=== PATIENT | female | born 1975 | race Caucasian/White ===

== ENCOUNTER 2022-12-31 11:25 | Observation (INO) ==
[2022-12-31 13:30] LABS: Basophils # (auto) 0.04 K/uL (0-0.2); Basophils % (auto) 1.2 %; Eosinophils # (auto) 0.02 K/uL (0-0.50); Eosinophils % (auto) 0.6 %; Hematocrit (blood only) 40.1 % (37.0-47.0); Hemoglobin 13.5 g/dl (12.0-16.0); Immature Granulocytes # (auto) 0.01 K/uL (0.01-0.20); Immature Granulocytes % (auto) 0.3 %; Lymphocytes # (auto) 0.72 K/uL (1.2-3.4); Lymphocytes % (auto) 22.4 %; Mean Corpuscular Hemoglobin 29.8 pg (25.0-34.0); Mean Corpuscular Hgb Conc 33.7 g/dL (32.0-36.0); Mean Corpuscular Volume 88.5 fL (80.0-100.0); Mean Platelet Volume 11.3 fL (9.4-12.4); Monocytes # (auto) 0.51 K/uL (0.11-0.59); Monocytes % (auto) 15.8 %; Neutrophils # (auto) 1.92 K/uL (1.40-6.50); Neutrophils % (auto) 59.7 %; Platelet Count 195 K/uL (130-400); RDW Coefficient of Variation 12.9 % (11.5-14.5); RDW Standard Deviation 42.1 fL (36.4-46.3); Red Blood Count 4.53 M/uL (4.20-5.40); White Blood Count 3.22 K/ul (4.8-10.8)
[2022-12-31 13:33] LABS: Albumin Globulin Ratio 1.1 (0.9-2); BUN Creatinine Ratio 26.2 (10-20); Bilirubin,Total 0.3 mg/dl (0.2-1.0); Calcium 9.3 mg/dl (8.6-10.3); Creatinine Clr Calc Pharmacy 132.9 ml/min; Est GFR (African American) 121.7 ml/min; Globulin 3.5 gm/dl (2.5-4.0); Total Protein 7.5 gm/dl (6.0-8.3)
[2022-12-31 13:39] LABS: Troponin I High Sensitivity 3.1 pg/ml (0-14)
--- NOTE | 2022-12-31 13:42 | XRay Report ---
XR chest 1V not portable CLINICAL HISTORY: Chest pain, nonspecific COMPARISON STUDY: No previous studies for comparison. FINDINGS: Lung volumes are normal. Lungs are clear. There is no pneumothorax or pleural effusion. Car diac size is normal. Mediastinal contours are normal. There is no evidence for pulmonary edema. IMPRESSION: No acute cardiopulmonary findings. ACT 112: Negative or not required by law. Electronically signed by: Leighton Lancaster M.D. 12/31/2022 1:41 PM
[2022-12-31 13:45] LABS: INR 1.1 (0.9-1.1); Partial Thromboplastin Ratio 0.9; Partial Thromboplastin Time 25.2 Seconds (21.0-31.0); Prothrombin Time 11.5 Seconds (9.0-12.0)
--- NOTE | 2022-12-31 14:22 | Electrocardiogram Report ---
Test Reason : Blood Pressure : / mmHG Vent. Rate : 075 BPM Atrial Rate : 075 BPM P-R Int : 180 ms QRS Dur : 124 ms QT Int : 394 ms P-R-T Axes : 052 -16 099 degrees QTc Int : 439 ms Sinus rhythm with occasional Premature ventricular complexes Possible Left atrial enlargement Left bundle branch block (rate related) Abnormal ECG No previous ECGs available Confirmed by Balaji Goodson ([id number]) on 12/31/2022 2:21:36 PM Referred By: Confirmed By:Valentino Goodson
--- NOTE | 2022-12-31 14:29 | Emergency Department Note ---
History of Present Illness General Chief complaint: Chest Pain Stated complaint: CHEST PAINS,IRREGULAR EKG Time Seen by Provider: 12/31/22 13:57 History of Present Illness Maximum Pain Intensity: 1 This is a 47-year-old female that presents to the emergency department via private vehicle with complaints of "chest pain, irregular EKG". The patient notes that she had an episode of chest pain this Thursday morning. She notes that it occurred around 3 AM and describes it as a chest tightness/pressure. She notes that she felt it in her back as well. It lasted about 3.5 hours. She notes it was quite uncomfortable. She then notes that a similar episode happened the last week in October. That was of 2 hours in duration. Patient denies any issues since that time. The patient notes that today she followed up with PCP and had an abnormal EKG. No shortness of breath. No fevers or chills. Patient denies any history of ID or PE. She does note an allergy to IV contrast dye and penicillin. Home Medications Medication Instructions Recorded Confirmed Type loratadine 10 mg tablet 10 mg PO DAILY 12/31/22 12/31/22 History Allergies Allergy/AdvReac Type Severity Reaction Status Date / Time Penicillins Allergy Hives Unverified 12/31/22 14:56 IV IODINE Allergy Unknown Uncoded 12/31/22 16:13 Past Med/Surg History Medical History HLD (hyperlipidemia) Obesity Surgical History H/O wisdom tooth extraction Family History (Updated 12/31/22 @ 15:24 by Raquel Upton PA-C) Mother Coronary heart disease Depression Father Lung disease Social History Smoking Status: Never smoker Hx Alcohol Use: Yes Alcohol type: hard liquor Hx Substance Use: No Manager Knowledge Required: No Beliefs That Will Affect Care: None Current Living Situation: Alone Feels Safe at Home: Yes Review of Systems A total of 10 systems reviewed and were otherwise negative Physical Exam Vital Signs Vital Signs - 24 hr 12/31/22 11:58 12/31/22 14:08 12/31/22 14:28 Temperature 36.7 C Temperature Source Temporal Artery Scan Pulse Rate 83 121 H 78 Respiratory Rate 18 20 Blood Pressure 171/83 H 158/104 H Blood Pressure Mean 112 122 Pulse Oximetry 100 98 Oxygen Delivery Method Room Air Room Air Sepsis Recent Fever Within 48 Hours No Sepsis New/Unexplained Change in Mental Status No Sepsis Action Taken by Nursing No Action Required 12/31/22 14:46 12/31/22 14:44 12/31/22 14:50 Temperature Temperature Source Pulse Rate 84 85 79 Respiratory Rate 12 Blood Pressure Blood Pressure Mean Pulse Oximetry 99 99 Oxygen Delivery Method Sepsis Recent Fever Within 48 Hours Sepsis New/Unexplained Change in Mental Status Sepsis Action Taken by Nursing 12/31/22 15:00 12/31/22 15:00 12/31/22 15:10 Temperature Temperature Source Pulse Rate 82 87 Respiratory Rate 23 24 Blood Pressure 178/107 H Blood Pressure Mean 130 Pulse Oximetry 97 98 Oxygen Delivery Method Sepsis Recent Fever Within 48 Hours Sepsis New/Unexplained Change in Mental Status Sepsis Action Taken by Nursing 12/31/22 15:20 12/31/22 15:30 12/31/22 15:30 Temperature Temperature Source Pulse Rate 84 76 Respiratory Rate 18 19 Blood Pressure 168/113 H Blood Pressure Mean 131 Pulse Oximetry 99 100 Oxygen Delivery Method Sepsis Recent Fever Within 48 Hours Sepsis New/Unexplained Change in Mental Status Sepsis Action Taken by Nursing VITAL SIGNS - Vital signs and triage nursing notes were reviewed. Stable and afebrile. GENERAL -47-year-old female appearing her stated age who is in no acute distress. Communicates well with provider and answers questions appropriately. SKIN - Without rashes. Stable and afebrile. HEAD - NC/AT. EYES - Sclera anicteric. NOSE - Midline and without cyanosis. MOUTH/OROPHARYNX - Without perioral cyanosis. NECK - No nuchal rigidity. LUNGS - Chest wall symmetric without accessory muscle use, intercostals retractions, or central cyanosis. Normal vesicular breath sounds CTA B/L. No wheezes, rales, or rhonchi appreciated. CARDIAC - RRR with S1/S2. No murmur, rubs, or gallops appreciated. ABDOMEN - Abdominal contour normal without pulsations or visible masses. BS normoactive all four quadrants. No tenderness, palpable masses, hepatosplenomegaly, or ascites noted. PSYCH - A&O. Pt is very pleasant and interacts well with examiner. Course Administered Medications Acetaminophen (Acetaminophen 325 Mg Tab) 650 mg PO Q4H PRN PRN Reason: Pain or Fever Stop: 01/30/23 17:46 Last Admin: 12/31/22 20:17 Dose: 650 mg Documented By: AH Discontinued Medications Losartan Potassium (Losartan Potassium 25 Mg Tab) 25 mg PO ONE ONE Stop: 12/31/22 17:16 Last Admin: 12/31/22 18:15 Dose: 25 mg Documented By: JUAREZ Medical Decision Making Laboratory Data 12/31/22 12:38 12/31/22 12:38 Lab Results 12/31/22 12/31/22 12/31/22 Range/Units 12:38 12:38 12:38 WBC 3.22 L (4.8-10.8) K/ul RBC 4.53 (4.20-5.40) M/uL Hgb 13.5 (12.0-16.0) g/dl Hct 40.1 (37.0-47.0) % MCV 88.5 (80.0-100.0) fL MCH 29.8 (25.0-34.0) pg MCHC 33.7 (32.0-36.0) g/dL RDW Std Deviation 42.1 (36.4-46.3) fL RDW Coeff of Sharad 12.9 (11.5-14.5) % Plt Count 195 (130-400) K/uL MPV 11.3 (9.4-12.4) fL Immature Gran % (Auto) 0.3 % Neut % (Auto) 59.7 % Lymph % (Auto) 22.4 % [place] % (Auto) 15.8 % Eos % (Auto) 0.6 % Baso % (Auto) 1.2 % Neut # (Auto) 1.92 (1.40-6.50) K/uL Lymph # (Auto) 0.72 L (1.2-3.4) K/uL [place] # (Auto) 0.51 (0.11-0.59) K/uL Eos # (Auto) 0.02 (0-0.50) K/uL Baso # (Auto) 0.04 (0-0.2) K/uL Immature Gran # (Auto) 0.01 (0.01-0.20) K/uL PT 11.5 (9.0-12.0) Seconds INR 1.1 (0.9-1.1) APTT 25.2 (21.0-31.0) Seconds PTT Ratio 0.9 Sodium 139 (136-145) mmol/L Potassium 4.0 (3.5-5.1) mmol/L Chloride 103 (98-107) mmol/L Carbon Dioxide 29 (21-32) mmol/L Anion Gap 7 (3-11) BUN 17 (6-23) mg/dl Creatinine 0.65 (0.6-1.2) mg/dl Est Cr Clr Drug Dosing 132.9 ml/min Est GFR ( Amer) 121.7 ml/min Est GFR (Non-Af Amer) 105.0 ml/min BUN/Creatinine Ratio 26.2 H (10-20) Glucose 81 (70-99(Fasting)) mg/dl Calcium 9.3 (8.6-10.3) mg/dl Total Bilirubin 0.3 (0.2-1.0) mg/dl AST 22 (13-39) U/L ALT 45 (7-52) U/L Alkaline Phosphatase 53 (34-104) U/L Troponin I High Sens 3.1 (0-14) pg/ml Total Protein 7.5 (6.0-8.3) gm/dl Albumin 4.0 (3.4-5.0) gm/dl Globulin 3.5 (2.5-4.0) gm/dl Albumin/Globulin Ratio 1.1 (0.9-2) SARS-CoV-2, RNA, NAAT (NEGATIVE) 12/31/22 Range/Units 15:20 WBC (4.8-10.8) K/ul RBC (4.20-5.40) M/uL Hgb (12.0-16.0) g/dl Hct (37.0-47.0) % MCV (80.0-100.0) fL MCH (25.0-34.0) pg MCHC (32.0-36.0) g/dL RDW Std Deviation (36.4-46.3) fL RDW Coeff of Sharad (11.5-14.5) % Plt Count (130-400) K/uL MPV (9.4-12.4) fL Immature Gran % (Auto) % Neut % (Auto) % Lymph % (Auto) % [place] % (Auto) % Eos % (Auto) % Baso % (Auto) % Neut # (Auto) (1.40-6.50) K/uL Lymph # (Auto) (1.2-3.4) K/uL [place] # (Auto) (0.11-0.59) K/uL Eos # (Auto) (0-0.50) K/uL Baso # (Auto) (0-0.2) K/uL Immature Gran # (Auto) (0.01-0.20) K/uL PT (9.0-12.0) Seconds INR (0.9-1.1) APTT (21.0-31.0) Seconds PTT Ratio Sodium (136-145) mmol/L Potassium (3.5-5.1) mmol/L Chloride (98-107) mmol/L Carbon Dioxide (21-32) mmol/L Anion Gap (3-11) BUN (6-23) mg/dl Creatinine (0.6-1.2) mg/dl Est Cr Clr Drug Dosing ml/min Est GFR ( Amer) ml/min Est GFR (Non-Af Amer) ml/min BUN/Creatinine Ratio (10-20) Glucose (70-99(Fasting)) mg/dl Calcium (8.6-10.3) mg/dl Total Bilirubin (0.2-1.0) mg/dl AST (13-39) U/L ALT (7-52) U/L Alkaline Phosphatase (34-104) U/L Troponin I High Sens (0-14) pg/ml Total Protein (6.0-8.3) gm/dl Albumin (3.4-5.0) gm/dl Globulin (2.5-4.0) gm/dl Albumin/Globulin Ratio (0.9-2) SARS-CoV-2, RNA, NAAT POSITIVE A* (NEGATIVE) Imaging Data Radiologist's Impression: Chest X-Ray 12/31/22 12:02 XR chest 1V not portable CLINICAL HISTORY: Chest pain, nonspecific COMPARISON STUDY: No previous studies for comparison. FINDINGS: Lung volumes are normal. Lungs are clear. There is no pneumothorax or pleural effusion. Cardiac size is normal. Mediastinal contours are normal. There is no evidence for pulmonary edema. IMPRESSION: No acute cardiopulmonary findings. ACT 112: Negative or not required by law. Electronically signed by: Leighton Lancaster M.D. 12/31/2022 1:41 PM MDM Narrative Patient was seen and evaluated as above in room C12. Review was performed of triage nursing notes and vital signs. I did review the patient's outpatient visit from earlier today as well as EKG from that visit. After obtaining a thorough history and physical examination the above work up was performed. Options of care were discussed with the patient. She presents to us today for assessment of chest pain that occurred a few days ago and was found to have an abnormal EKG today in follow-up. Patient clinically well-appearing and nontoxic. No chest pain at the present time. EKG was performed here and reveals sinus rhythm with occasional PVC. Left bundle branch block noted. No previous in our EMR for comparison. QTc 439. QRS 124. No ST elevation. Chest x-ray negative. Labs reveal mild leukopenia 3.22. No anemia. Coags normal. No emergent metabolic disturbance. COVID testing positive but will note that she does not have any symptoms of COVID at the present time. At this time with the patient having EKG findings that are unclear whether or not it is new or something that has been ongoing as there are no previous to compare other than today, I did find it reasonable to discuss this with the on-call control systems technician, Dr. Magana. At this time it is felt reasonable to proceed with inpatient management for further evaluation of her chest pain in the setting of left bundle branch block. Case then discussed with the hospitalist service. Please refer to further documentation regarding her stay. Patient amenable to plan of care. GCS: 15 In the evaluation and treatment of this patient, the following differential diagnoses were considered: ID, ASC, Dysrhythmia, Angina, Mediastinitis, GERD, Esophagitis, PE, Pneumonia, Bronchitis, Costochondritis, Rib Fracture, Zoster. Impression & Plan Chest pain, LBBB (left bundle branch block) Discharge Plan Visit Data Chief Complaint: Chest Pain Stated Complaint: CHEST PAINS,IRREGULAR EKG ED Provider: Carly Lugo ED Midlevel Provider: Tamir Merida Discharge Problem: Chest pain, LBBB (left bundle branch block) Patient Disposition: Admitted As Inpatient Condition: Good Discharge Instructions Interventions: ED Discharge Assessment Last Done: 12/31/22 17:23
--- NOTE | 2022-12-31 15:25 | History & Physical Report ---
Date of Service December 31, 2022 Assessment & Plan (1) Chest pain: (2) LBBB (left bundle branch block): Plan: Patient is 47-year-old female with PMH HLD, obesity presented to ER with complaint of intermittent chest pain In ER afebrile, P: 83, BP: 171/83, R: 20, 98% on RA. Initial high-sensitivity troponin: 3.1. EKG reviewed and sinus rhythm rate 75 with PVCs, LBBB. No prior EKG to compare CXR: No acute cardiopulmonary findings Has been without chest pain during ER course Unsure if new or old LBBB R/O ACS. Risk factors: HLD, obesity, FH Repeat EKG in am Will trend troponin Echo Lipid panel in am NPO midnight Start aspirin Nitro prn CP and repeat EKG for CP Cardiology consult (3) Elevated blood pressure reading: Plan: BP's elevated in ER today. BP in PCP office today was WNL Monitor BP Cardiology suggest losartan one dose (4) HLD (hyperlipidemia): Plan: 05/01/2021 lipid panel: Total cholesterol: 244, LDL: 182, HDL: 53, triglycerides: 47 Not on current medication Lipid panel in am (5) Lab test positive for detection of COVID-19 virus: Plan: Positive SARS Cov 2 RNA test in ER Reported slight cough this morning. Denies fever/chills, N/V, SOB. No hypoxia CXR: No acute cardiopulmonary findings Isolation precautions (6) Obesity: Plan: BMI: 39 Lifestyle modifications recommended DVT Prophylaxis SCDs Full Code as per discussion with pt Does not Follow with Dr ochoa, was seen by [facility] today. Pt was seen and care coordinated with Dr Benitez. See addendum I spent a total of 60 minutes reviewing notes, outpatient records, labs, medication, coordinating, documenting and providing care for this patient excluding time spent in the performance of separately billed services. History of Present Illness Chief Complaint: CP Primary Care Provider: NO PCP Patient is 47-year-old female with PMH HLD, obesity presented to ER with complaint of intermittent chest pain. Patient presented to outpatient primary care clinic today for episodes of chest pain. She was referred to ER and had reported abnormal EKG. This is unavailable for review from outpatient records. Reports episode of chest pain in September 2022 that awoke her from sleep resolved in 1-2 hours and self resolved. Reports 5 days ago awoke from sleep with chest pain radiating to back described as pressure, worsened with deep breathing with associated dizziness. Denies SOB. She states made her self vomit and it felt like it relieved the pressure a little. Resolved in 3 hours. Took 2 Benadryl and aspirin. States 4 days ago also with chest pain when she was talking about her son's upcoming wedding and felt stressed. She was concerned it may be related to stress or anxiety. Feels has some underlying anxiety. Taking OTC herbal supplements. Patient reports some headache today while being in ER. Denies any chest pain today or currently. States this morning coughed a few times. Denies productive cough or SOB. Denies known ill contacts. Denies fever/chills, diaphoresis, N/V/D/C, dizziness, syncope, vision changes, neck pain, SOB, orthopnea, palpitations, sore throat, choking, otalgia, rhinorrhea, abdominal pain, paresthesias, weakness, extremity weakness, extremity edema, rashes, urinary symptoms. Allergies Allergy/AdvReac Type Severity Reaction Status Date / Time Penicillins Allergy Hives Unverified 12/31/22 14:56 IV IODINE Allergy Unknown Uncoded 12/31/22 16:13 Home Medications Medication Instructions Recorded Confirmed Type loratadine 10 mg tablet 10 mg PO DAILY 12/31/22 12/31/22 History Past Med/Surg History Medical History (Updated 12/31/22 @ 16:50 by Raquel Upton PA-C) HLD (hyperlipidemia) Obesity Surgical History (Updated 12/31/22 @ 16:12 by Raquel Upton PA-C) H/O wisdom tooth extraction Family History (Updated 12/31/22 @ 15:24 by Raquel Upton PA-C) Mother Coronary heart disease Depression Father Lung disease Social History (Updated 12/31/22 @ 16:11 by Raquel Upton PA-C) Smoking Status: Never smoker Hx Alcohol Use: Yes Alcohol type: hard liquor Hx Substance Use: No Parts Sales Associate Required: No Beliefs That Will Affect Care: None Current Living Situation: Alone Feels Safe at Home: Yes Review of Systems Review of Systems: All systems reviewed & are unremarkable except as noted in HPI & below Physical Exam Physical Exam: General: no acute distress, obese Head: normocephalic, atraumatic Eyes: conjunctiva non-injected, anicteric ENT: normal inspection external ears, nose, mucous membranes moist Neck: supple, trachea midline Lungs: clear, no respiratory distress, no wheezing/rhonchi/rales CV: RRR, no murmur, no pretibial edema Abd: normal BS, soft, non-tender Ext: no cyanosis, no calf tenderness Neuro: A&O x 3, no focal deficits noted, normal affect Skin: warm, dry Results & Data Results & Data Vital Signs (Past 12 Hours) Vital Signs Temp Pulse Resp BP Pulse Ox O2 Del Method 12/31/22 14:46 84 12/31/22 14:28 78 12/31/22 14:08 121 H 20 158/104 H 98 Room Air 12/31/22 11:58 36.7 C 83 18 171/83 H 100 Room Air Laboratory Results Short CBC 12/31/22 Range/Units 12:38 WBC 3.22 L (4.8-10.8) K/ul Hgb 13.5 (12.0-16.0) g/dl Hct 40.1 (37.0-47.0) % Plt Count 195 (130-400) K/uL BMP 12/31/22 12:38 Sodium 139 Potassium 4.0 Chloride 103 Carbon Dioxide 29 BUN 17 Creatinine 0.65 Glucose 81 Calcium 9.3 Liver Function 12/31/22 Range/Units 12:38 Total Bilirubin 0.3 (0.2-1.0) mg/dl AST 22 (13-39) U/L ALT 45 (7-52) U/L Alkaline Phosphatase 53 (34-104) U/L Albumin 4.0 (3.4-5.0) gm/dl Diagnostic Findings Chest X-Ray 12/31/22 12:02 XR chest 1V not portable CLINICAL HISTORY: Chest pain, nonspecific COMPARISON STUDY: No previous studies for comparison. FINDINGS: Lung volumes are normal. Lungs are clear. There is no pneumothorax or pleural effusion. Cardiac size is normal. Mediastinal contours are normal. There is no evidence for pulmonary edema. IMPRESSION: No acute cardiopulmonary findings. ACT 112: Negative or not required by law. Electronically signed by: Leighton Lancaster M.D. 12/31/2022 1:41 PM ECG Rate (beats per minute): 75 Rhythm: sinus rhythm Findings: + LBBB and + PVC Supervising Physician Co-Signing Physician Notes History and physical exam performed by me notable for 47year old woman with anxiety who takes Ferny's wort and other natural remedies who presents from PCP for chest pain that woke her from sleep 4 days ago and lasted about 38 and half hours, described as pressure central chest pain going all the way to the back associated with tightness. Reports that this may be associated with anxietyshe has a lot of things going on and also planning for a wedding. She took 2 baby aspirins She reported she had a similar episode the next day but not as intense while discussing with a friend about her son's wedding plans. No chest pain since She also had had a similar episode of chest pain some months ago but not as intense. Denied any alcohol or illicit drug use. Had only smoked a few times in her teenage years. Mother had a history of angina/ heart problems but does not remember at what age Reports chronic allergies with congestion and postnasal On exam, General: Obese no acute distress Eyes: PERRL, conjunctivae normal, not pale, anicteric sclerae, EOM intact bilaterally ENMT: External ear and nose normal, oropharynx normal Neck: Normal visual inspection, no tracheal deviation, no swelling noted Respiratory: Normal respiratory effort, no respiratory distress, lungs clear to auscultation, no crackles and no wheezes Cardiovascular: RRR S1 S2 Gastrointestinal (Abdomen): Abdomen is not distended, soft, non-tender to palpation, no guarding, no palpable hepatosplenomegaly, normal bowel sounds Musculoskeletal: No pedal edema, all extremities motor strength 5/5 Neurologic: Alert and oriented x 3, No focal weakness, sensation grossly intact Psychiatric: Euthymic affect EKG notable for left bundle branch. No old 1 to compare. Labs grossly unremarkable. Troponin was 3.1. COVID test was positive Chest pain did not show any acute abnormalities. Chest pain. Trend troponin. Consult cardiology. Considering LBBB which could mask ACS and EKG, will trend troponin and get an echocardiogram. Keep n.p.o. for possible further cardiac work-up such as cardiac catheterization. Reports next contrast allergy and will will need pretreatment if getting cath. Blood pressure in PCPs office was normal but currently elevated. May be anxiety related. We will monitor and optimize blood pressure control. Get hemoglobin A1c and lipid panel Isolation precaution. No COVID specific therapies at this time Symptomatic management Other plans as detailed by Raquel Upton PA-C
--- NOTE | 2022-12-31 16:24 | Communication Note ---
Date of Service: December 31, 2022 History and physical exam performed by me notable for 47year old woman with anxiety who takes Ferny's wort and other natural remedies who presents from [facility] for chest pain that woke her from sleep 4 days ago and lasted about 38 and half hours, described as pressure central chest pain going all the way to the back associated with tightness. Reports that this may be associated with anxietyshe has a lot of things going on and also planning for a wedding. She took 2 baby aspirins She reported she had a similar episode the next day but not as intense while discussing with a friend about her son's wedding plans. No chest pain since She also had had a similar episode of chest pain some months ago but not as intense. Denied any alcohol or illicit drug use. Had only smoked a few times in her teenage years. Mother had a history of angina/ heart problems but does not remember at what age Reports chronic allergies with congestion and postnasal On exam, General: Obese no acute distress Eyes: PERRL, conjunctivae normal, not pale, anicteric sclerae, EOM intact bilaterally ENMT: External ear and nose normal, oropharynx normal Neck: Normal visual inspection, no tracheal deviation, no swelling noted Respiratory: Normal respiratory effort, no respiratory distress, lungs clear to auscultation, no crackles and no wheezes Cardiovascular: RRR S1 S2 Gastrointestinal (Abdomen): Abdomen is not distended, soft, non-tender to palpation, no guarding, no palpable hepatosplenomegaly, normal bowel sounds Musculoskeletal: No pedal edema, all extremities motor strength 5/5 Neurologic: Alert and oriented x 3, No focal weakness, sensation grossly intact Psychiatric: Euthymic affect EKG notable for left bundle branch. No old 1 to compare. Labs grossly unremarkable. Troponin was 3.1. COVID test was positive Chest pain did not show any acute abnormalities. Chest pain. Trend troponin. Consult cardiology. Considering LBBB which could mask ACS and EKG, will trend troponin and get an echocardiogram. Keep n.p.o. for possible further cardiac work-up such as cardiac catheterization. Reports next contrast allergy and will will need pretreatment if getting cath. Blood pressure in PCPs office was normal but currently elevated. May be anxiety related. We will monitor and optimize blood pressure control. Get hemoglobin A1c and lipid panel Isolation precaution. No COVID specific therapies at this time Symptomatic management Other plans as detailed by Raquel Upton PA-C
--- NOTE | 2022-12-31 17:03 | Cardiology Consultation ---
Date of Consultation December 31, 2022 Assessment & Plan (1) LBBB (left bundle branch block): (2) Chest pain: (3) HLD (hyperlipidemia): (4) Elevated blood pressure reading: Plan Patient is a 47-year-old female who sought evaluation of symptoms of intermittent chest pain with 2 episodes of significance most recent 4 days prior. EKG done on outpatient evaluation reflected newly observed left bundle branch block and patient referred for ER evaluation appropriately. Patient is hypertensive but asymptomatic. Initial troponin negative (last chest pain 4 days prior) Plan: Echocardiogram ordered. We will treat hypertension with losartan 25 mg single dose initially Keep n.p.o. after midnight. Discussed potential options of evaluation including stress testing versus coronary angiography. Dye allergy noted We will review studies and reassess in a.m. History of Present Illness Reason for Consultation: Left bundle branch block, chest pain Attending Physician: Dr Toledo History of Present Illness Patient is a 47-year-old female without prior history of cardiac disease or significant underlying medical issues per patient. She notes history of chronic anxiety and obesity. She presents now with history notable for chest pain awakening her from sleep in October 2022 with no recurrence until Thursday prior to admission (4 days prior) when she was awakened approximately 3 AM with substernal chest pain and mild shortness of breath symptoms lasted 2 to 3 hours before resolving. She took aspirin as well as Benadryl for complaints. Has not had recurrence of symptoms but sought evaluation from PCP today. EKG in outpatient setting demonstrated newly observed left bundle branch block. She currently is comfortable. Denies current chest pain shortness of breath dizziness or lightheadedness notes no syncope or near syncope. Moderately active about her home without specific limitations until recently. No prior history of hypertension diabetes mellitus renal or hepatic disease. Notes no history rheumatic fever scarlet fever. No history of murmur, myocardial infarction, or past congestive heart failure no recent fevers chills or unexplained infections. No bleeding difficulties. Does admit to significant sleep difficulties and moderate disruption, chronic fatigue No fluid retention or worsening edema.Weight has been gradually trending upward. Allergies Allergy/AdvReac Type Severity Reaction Status Date / Time Penicillins Allergy Hives Unverified 12/31/22 14:56 IV IODINE Allergy Unknown Uncoded 12/31/22 16:13 Home Medications Medication Instructions Recorded Confirmed Type loratadine 10 mg tablet 10 mg PO DAILY 12/31/22 12/31/22 History Patient History Medical History (Updated 12/31/22 @ 16:50 by Raquel Upton PA-C) HLD (hyperlipidemia) Obesity Surgical History (Updated 12/31/22 @ 16:12 by Raquel Upton PA-C) H/O wisdom tooth extraction Family History (Updated 12/31/22 @ 15:24 by Raquel Upton PA-C) Mother Coronary heart disease Depression Father Lung disease Social History (Updated 12/31/22 @ 16:11 by Raquel Upton PA-C) Smoking Status: Never smoker Hx Alcohol Use: No Hx Substance Use: No Review of Systems Review of Systems: All systems reviewed & are unremarkable except as noted in HPI & below Physical Exam Constitutional: WD/WN, vitals as above + obese; no acute distress Eyes: PERRL, conjunctivae normal, anicteric sclerae ENMT: external ear and nose normal, oropharynx normal Neck: trachea midline, no thyromegaly Respiratory: normal respiratory effort, lungs clear to auscultation Cardiovascular: RRR, no murmur, no edema Heart Sounds: normal S1 and normal S2; no murmur Vessels: no JVD Extremities: no edema Gastrointestinal (Abdomen): normal bowel sounds, soft, nontender, no hepatosplenomegaly Musculoskeletal: no cyanosis or clubbing, extremities motor strength 5/5 Results & Data Vital Signs (Past 12 Hours) Vital Signs Temp Pulse Resp BP Pulse Ox O2 Del Method 12/31/22 16:44 64 12/31/22 15:30 76 19 100 12/31/22 15:30 168/113 H 12/31/22 15:20 84 18 99 12/31/22 15:10 87 24 98 12/31/22 15:00 82 23 97 12/31/22 15:00 178/107 H 12/31/22 14:50 79 99 12/31/22 14:44 85 12 99 12/31/22 14:46 84 12/31/22 14:28 78 12/31/22 14:08 121 H 20 158/104 H 98 Room Air 12/31/22 11:58 36.7 C 83 18 171/83 H 100 Room Air Laboratory Results Laboratory Results - last 24 hr 03/12/31/22 12/31/22 12:38 12:38 12:38 WBC 3.22 L RBC 4.53 Hgb 13.5 Hct 40.1 MCV 88.5 MCH 29.8 MCHC 33.7 RDW Std Deviation 42.1 RDW Coeff of Sharad 12.9 Plt Count 195 MPV 11.3 Immature Gran % (Auto) 0.3 Neut % (Auto) 59.7 Lymph % (Auto) 22.4 [place] % (Auto) 15.8 Eos % (Auto) 0.6 Baso % (Auto) 1.2 Neut # (Auto) 1.92 Lymph # (Auto) 0.72 L [place] # (Auto) 0.51 Eos # (Auto) 0.02 Baso # (Auto) 0.04 Immature Gran # (Auto) 0.01 PT 11.5 INR 1.1 APTT 25.2 PTT Ratio 0.9 Sodium 139 Potassium 4.0 Chloride 103 Carbon Dioxide 29 Anion Gap 7 BUN 17 Creatinine 0.65 Est Cr Clr Drug Dosing 132.9 Est GFR ( Amer) 121.7 Est GFR (Non-Af Amer) 105.0 BUN/Creatinine Ratio 26.2 H Glucose 81 Calcium 9.3 Total Bilirubin 0.3 AST 22 ALT 45 Alkaline Phosphatase 53 Troponin I High Sens 3.1 Total Protein 7.5 Albumin 4.0 Globulin 3.5 Albumin/Globulin Ratio 1.1 SARS-CoV-2, RNA, NAAT 12/31/22 12/31/22 15:20 16:33 WBC RBC Hgb Hct MCV MCH MCHC RDW Std Deviation RDW Coeff of Sharad Plt Count MPV Immature Gran % (Auto) Neut % (Auto) Lymph % (Auto) [place] % (Auto) Eos % (Auto) Baso % (Auto) Neut # (Auto) Lymph # (Auto) [place] # (Auto) Eos # (Auto) Baso # (Auto) Immature Gran # (Auto) PT INR APTT PTT Ratio Sodium Potassium Chloride Carbon Dioxide Anion Gap BUN Creatinine Est Cr Clr Drug Dosing Est GFR ( Amer) Est GFR (Non-Af Amer) BUN/Creatinine Ratio Glucose Calcium Total Bilirubin AST ALT Alkaline Phosphatase Troponin I High Sens Pending Total Protein Albumin Globulin Albumin/Globulin Ratio SARS-CoV-2, RNA, NAAT POSITIVE A* ECG Additional Comments: EKG 12/31/2022 sinus rhythm with occasional premature ventricular beats, IVCD/le ft bundle branch block configuration rate 77 bpm
[2022-12-31] MEDS ORDERED: LOSARTAN POTASSIUM 25 MG TAB PO ONE (17:15)
[2022-12-31] MEDS ORDERED: NITROGLYCERIN SL 0.4 MG/TAB TAB SL PRN (17:47)
[2022-12-31] MEDS ORDERED: POLYETHYLENE (MIRALAX) 17 GM PACK PO PRN (17:47)
[2022-12-31] MEDS: ACETAMINOPHEN 325 MG TAB PO PRN (20:17)
--- NOTE | 2022-12-31 21:20 | CT Scan Report ---
Exam(s): CT HEAD Without Contrast EXAM: CT Head Without Intravenous Contrast CLINICAL HISTORY: Reason for exam: boswell. TECHNIQUE: Axial computed tomography images of the head/brain without intravenous contrast. Automated exposure control was utilized for the study. A dose lowering technique was utilized adhering to the principles of ALARA. COMPARISON: None. FINDINGS: Brain: Unremarkable. No hemorrhage. No significant white matter disease. No edema. Ventricles: Unremarkable. No ventriculomegaly. Bones/joints: Unremarkable. No acute fracture. Soft tissues: Unremarkable. Sinuses: Unremarkable as visualized. No acute sinusitis. Mastoid air cells: Unremarkable as visualized. No mastoid effusion. IMPRESSION: Normal CT brain for age. Electronically signed by: Anneliese Riojas MD 12/31/22 21:18 PM
[2023-01-01] MEDS: ACETAMINOPHEN 325 MG TAB PO PRN (05:15)
[2023-01-01 08:04] LABS: Hematocrit (blood only) 38.9 % (37.0-47.0); Hemoglobin 13.1 g/dl (12.0-16.0); Mean Corpuscular Hemoglobin 29.7 pg (25.0-34.0); Mean Corpuscular Hgb Conc 33.7 g/dL (32.0-36.0); Mean Corpuscular Volume 88.2 fL (80.0-100.0); Mean Platelet Volume 11.1 fL (9.4-12.4); Platelet Count 190 K/uL (130-400); RDW Coefficient of Variation 12.8 % (11.5-14.5); Red Blood Count 4.41 M/uL (4.20-5.40); White Blood Count 3.23 K/ul (4.8-10.8)
[2023-01-01 08:20] LABS: BUN Creatinine Ratio 26.3 (10-20); Calcium 8.9 mg/dl (8.6-10.3); Creatinine Clr Calc Pharmacy 150.1 ml/min; Est GFR (African American) 127.1 ml/min; Est GFR (Non-African American) 109.6 ml/min; Potassium 4.1 mmol/L (3.5-5.1)
[2023-01-01] MEDS ORDERED: ASPIRIN 81 MG ECTAB PO SCH (09:00)
[2023-01-01] MEDS ORDERED: LORATADINE 10 MG TAB PO SCH (09:00)
[2023-01-01] MEDS ORDERED: SODIUM CHLORIDE 0.9% 1000ML 1,000 ML IV SCH ×2 (10:15→15:00)
[2023-01-01] MEDS ORDERED: predniSONE 20 MG TAB PO STA (10:20)
--- NOTE | 2023-01-01 12:46 | Cardiology Progress Note ---
Date of Service January 01, 2023 Assessment & Plan (1) LBBB (left bundle branch block): (2) Chest pain: (3) HLD (hyperlipidemia): (4) Elevated blood pressure reading: Plan Patient is a 47-year-old female who sought evaluation of symptoms of intermittent chest pain with 2 episodes of significance most recent 4 days prior. EKG done on outpatient evaluation reflected newly observed left bundle branch block and patient referred for ER evaluation appropriately. Patient is hypertensive but asymptomatic. Initial troponin negative (last chest pain 4 days prior) Plan: Patient with mild low-level chest pressure earlier this morning. No acute evolution of cardiac enzymes but underlying left bundle branch block limits interpretation. Echocardiogram as noted with normal systolic function but dyssynergy septal contraction After discussion with patient we will proceed with diagnostic coronary angiography given symptoms, risk factors of elevated LDL and hypertension, familial history of heart disease and newly observed left bundle branch block with current symptoms Procedure and risks explained in detail. Dye allergy observed and patient received oral prednisone this morning and IV therapies perioperatively Further recommendations pending results of testing Admission and Anticipated Discharge Date Admission Date: December 31, 2022 Subjective Patient seen and examined, chart, medications, telemetry reviewed. No arrhythmias overnight with sinus rhythm and rare ventricular ectopy. Patient notes 1 episode of mild chest pressure earlier this morning. No fevers chills or cough. No focal chest wall tenderness. EKG with persistent left bundle branch block. Echocardiogram with dyssynergic interventricular septum and normal LV systolic function, no valvular disease. Review of Systems Review of Systems: All systems reviewed & are unremarkable except as noted in Subjective Physical Exam Constitutional: WD/WN, vitals as above + obese; no acute distress Eyes: PERRL, conjunctivae normal, anicteric sclerae ENMT: external ear and nose normal, oropharynx normal Neck: trachea midline, no thyromegaly Respiratory: normal respiratory effort, lungs clear to auscultation Cardiovascular: RRR, no murmur, no edema Heart Sounds: normal S1 and normal S2; no murmur Vessels: no JVD Extremities: no edema Gastrointestinal (Abdomen): normal bowel sounds, soft, nontender, no hepatosplenomegaly Musculoskeletal: no cyanosis or clubbing, extremities motor strength 5/5 Results & Data Vital Signs (Past 12 Hours) Vital Signs Temp Pulse Pulse Resp BP Pulse Ox O2 Del Method 01/01/23 12:13 37.1 C 71 18 110/77 97 Room Air 01/01/23 08:50 36.6 C 70 18 139/78 96 Room Air 01/01/23 08:37 79 01/01/23 03:03 36.7 C 74 18 140/78 97 Room Air Laboratory Results Laboratory Results - last 24 hr 12/31/22 12/31/22 12/31/22 12:38 12:38 12:38 WBC 3.22 L RBC 4.53 Hgb 13.5 Hct 40.1 MCV 88.5 MCH 29.8 MCHC 33.7 RDW Std Deviation 42.1 RDW Coeff of Sharad 12.9 Plt Count 195 MPV 11.3 Immature Gran % (Auto) 0.3 Neut % (Auto) 59.7 Lymph % (Auto) 22.4 [place] % (Auto) 15.8 Eos % (Auto) 0.6 Baso % (Auto) 1.2 Neut # (Auto) 1.92 Lymph # (Auto) 0.72 L [place]w # (Auto) 0.51 Eos # (Auto) 0.02 Baso # (Auto) 0.04 Immature Gran # (Auto) 0.01 PT 11.5 INR 1.1 APTT 25.2 PTT Ratio 0.9 Sodium 139 Potassium 4.0 Chloride 103 Carbon Dioxide 29 Anion Gap 7 BUN 17 Creatinine 0.65 Est Cr Clr Drug Dosing 132.9 Est GFR ( Amer) 121.7 Est GFR (Non-Af Amer) 105.0 BUN/Creatinine Ratio 26.2 H Glucose 81 Calcium 9.3 Total Bilirubin 0.3 AST 22 ALT 45 Alkaline Phosphatase 53 Troponin I High Sens 3.1 Total Protein 7.5 Albumin 4.0 Globulin 3.5 Albumin/Globulin Ratio 1.1 Triglycerides Cholesterol LDL Cholesterol, Calc VLDL Cholesterol, Calc HDL Cholesterol Cholesterol/HDL Ratio SARS-CoV-2, RNA, NAAT 12/31/22 12/31/22 12/31/22 15:20 16:33 23:22 WBC RBC Hgb Hct MCV MCH MCHC RDW Std Deviation RDW Coeff of Sharad Plt Count MPV Immature Gran % (Auto) Neut % (Auto) Lymph % (Auto) [place] % (Auto) Eos % (Auto) Baso % (Auto) Neut # (Auto) Lymph # (Auto) [place] # (Auto) Eos # (Auto) Baso # (Auto) Immature Gran # (Auto) PT INR APTT PTT Ratio Sodium Potassium Chloride Carbon Dioxide Anion Gap BUN Creatinine Est Cr Clr Drug Dosing Est GFR ( Amer) Est GFR (Non-Af Amer) BUN/Creatinine Ratio Glucose Calcium Total Bilirubin AST ALT Alkaline Phosphatase Troponin I High Sens 3.9 4.3 Total Protein Albumin Globulin Albumin/Globulin Ratio Triglycerides Cholesterol LDL Cholesterol, Calc VLDL Cholesterol, Calc HDL Cholesterol Cholesterol/HDL Ratio SARS-CoV-2, RNA, NAAT POSITIVE A* 01/01/23 01/01/23 07:15 07:15 WBC 3.23 L RBC 4.41 Hgb 13.1 Hct 38.9 MCV 88.2 MCH 29.7 MCHC 33.7 RDW Std Deviation 41.0 RDW Coeff of Sharda 12.8 Plt Count 190 MPV 11.1 Immature Gran % (Auto) Neut % (Auto) Lymph % (Auto) [place] % (Auto) Eos % (Auto) Baso % (Auto) Neut # (Auto) Lymph # (Auto) [place] # (Auto) Eos # (Auto) Baso # (Auto) Immature Gran # (Auto) PT INR APTT PTT Ratio Sodium 138 Potassium 4.1 Chloride 105 Carbon Dioxide 26 Anion Gap 7 BUN 15 Creatinine 0.57 L Est Cr Clr Drug Dosing 150.1 Est GFR ( Amer) 127.1 Est GFR (Non-Af Amer) 109.6 BUN/Creatinine Ratio 26.3 H Glucose 84 Calcium 8.9 Total Bilirubin AST ALT Alkaline Phosphatase Troponin I High Sens Total Protein Albumin Globulin Albumin/Globulin Ratio Triglycerides 59 Cholesterol 209 H LDL Cholesterol, Calc 155 VLDL Cholesterol, Calc 12 HDL Cholesterol 42 Cholesterol/HDL Ratio 5.0 SARS-CoV-2, RNA, NAAT
[2023-01-01] MEDS ORDERED: diphenhydrAMINE 50 MG/ML VIAL IV SCH (13:00)
--- NOTE | 2023-01-01 13:04 | Hospitalist Progress Note ---
Date of Service January 01, 2023 Assessment & Plan (1) Chest pain: (2) LBBB (left bundle branch block): Plan: per admitting C notes with addendum: Patient is 47-year-old female with PMH HLD, obesity presented to ER with complaint of intermittent chest pain In ER afebrile, P: 83, BP: 171/83, R: 20, 98% on RA. Initial high-sensitivity troponin: 3.1. EKG reviewed and sinus rhythm rate 75 with PVCs, LBBB. No prior EKG to compare CXR: No acute cardiopulmonary findings Has been without chest pain during ER course Unsure if new or old LBBB R/O ACS. Risk factors: HLD, obesity, FH Repeat EKG in am Will trend troponin Echo Lipid panel in am NPO midnight Start aspirin Nitro prn CP and repeat EKG for CP Cardiology consult 01/01 ACS ruled out EKG unchanged this morning for Cardiac cath today (3) Elevated blood pressure reading: Plan: BP's elevated in ER today. BP in PCP office today was WNL Monitor BP Cardiology suggest losartan one dose 01/01 Losartan 25mg po daily started monitor BP (4) HLD (hyperlipidemia): Plan: 05/01/2021 lipid panel: Total cholesterol: 244, LDL: 182, HDL: 53, triglycerides: 47 Not on current medication 01/01 TG 59 LDL 155 HDL 42 (5) Lab test positive for detection of COVID-19 virus: Plan: Positive SARS Cov 2 RNA test in ER Reported slight cough this morning. Denies fever/chills, N/V, SOB. No hypoxia CXR: No acute cardiopulmonary findings Isolation precautions 01/01 has mild cough no dyspnea CXR: no pneumonia on room air supportive care (6) Obesity: Plan: BMI: 39 Lifestyle modifications recommended DVT Prophylaxis SCDs Full Code as per discussion with pt Disposition pending anticipate d/c home when medically stable Admission and Anticipated Discharge Date Admission Date: December 31, 2022 Subjective ff up for chest pain, LBBB, etc seen resting in bed, sitting up not in distress does report epigastric discomfort- pressure- 2/10 with no associated symptoms no chest pain, dyspnea, palpitations, dizziness denies cough, fever/chills no other symptoms Review of Systems Review of Systems: all noted and negative except for above Physical Exam Physical Exam: General- oriented x 3, not in distress, speaks in sentences with no effort or accessory muscle use Eyes- anicteric Neck- no JVD Lungs- clear BS bilaterally, no rales/wheezes Heart- normal rate, regular rhythm; no murmurs Abdomen- normal bowel sounds, nondistended, soft, nontender Extremities- no pretibial edema, no calf tenderness Neuro- alert, oriented x 3; no gross focal neurologic deficits Skin- warm & dry Results & Data Results & Data Vital Signs (Past 12 Hours) Vital Signs Temp Pulse Pulse Resp BP Pulse Ox O2 Del Method 01/01/23 12:13 37.1 C 71 18 110/77 97 Room Air 01/01/23 08:50 36.6 C 70 18 139/78 96 Room Air 01/01/23 08:37 79 01/01/23 03:03 36.7 C 74 18 140/78 97 Room Air all noted and reviewed including below
[2023-01-01] MEDS ORDERED: fentaNYL citrate PF 100 MCG/2 ML VIAL ONE (13:38)
[2023-01-01] MEDS ORDERED: HEPARIN (PORCINE) 1000 UNIT/ML 10 ML (CATH LAB USE ONLY) ONE (13:38)
[2023-01-01] MEDS ORDERED: niCARdipine HCL INJ 2.5 MG/ML 10 ML AMP ONE (13:38)
[2023-01-01] MEDS ORDERED: NITROGLYCERIN/D5W 100MCG/ML 20ML SYR ONE (13:39)
[2023-01-01] MEDS ORDERED: MIDAZOLAM HCL 1 MG/ML 2ML VIAL ONE (13:39)
--- NOTE | 2023-01-01 13:52 | Pre Anesthesia Assessment ---
Date of Service January 01, 2023 Pre Sedation Assessment Vital Signs Temp Pulse Pulse Resp BP BP Pulse Ox 01/01/23 12:13 37.1 C 71 18 110/77 97 01/01/23 08:50 36.6 C 70 18 139/78 96 01/01/23 08:37 79 01/01/23 03:03 36.7 C 74 18 140/78 97 12/31/22 20:04 78 167/112 H 12/31/22 21:15 77 138/76 12/31/22 22:00 75 12/31/22 22:44 36.7 C 70 18 145/74 H 95 12/31/22 18:09 72 12/31/22 17:51 37 C 80 18 168/101 H 99 12/31/22 17:23 12/31/22 17:20 84 12 97 12/31/22 17:18 80 14 99 12/31/22 17:18 145/99 H 12/31/22 17:10 88 16 98 12/31/22 17:01 154 H 27 H 100 12/31/22 17:01 181/129 H 12/31/22 17:00 130 H 24 98 12/31/22 16:50 82 26 H 99 12/31/22 16:40 146 H 24 100 12/31/22 16:30 152 H 26 H 100 12/31/22 16:30 148/107 H 12/31/22 16:20 151 H 25 H 99 12/31/22 16:10 87 18 145/99 H 100 12/31/22 16:00 81 20 99 12/31/22 16:00 176/113 H 12/31/22 15:50 21 100 12/31/22 15:40 82 13 96 12/31/22 16:44 64 12/31/22 15:30 76 19 100 12/31/22 15:30 168/113 H 12/31/22 15:20 84 18 99 12/31/22 15:10 87 24 98 12/31/22 15:00 82 23 97 12/31/22 15:00 178/107 H 12/31/22 14:50 79 99 12/31/22 14:44 85 12 99 12/31/22 14:46 84 12/31/22 14:28 78 12/31/22 14:08 121 H 20 158/104 H 98 O2 Del Method 01/01/23 12:13 Room Air 01/01/23 08:50 Room Air 01/01/23 08:37 01/01/23 03:03 Room Air 12/31/22 20:04 12/31/22 21:15 12/31/22 22:00 12/31/22 22:44 Room Air 12/31/22 18:09 12/31/22 17:51 Room Air 12/31/22 17:23 Room Air 12/31/22 17:20 12/31/22 17:18 12/31/22 17:18 12/31/22 17:10 12/31/22 17:01 12/31/22 17:01 12/31/22 17:00 12/31/22 16:50 12/31/22 16:40 12/31/22 16:30 12/31/22 16:30 12/31/22 16:20 12/31/22 16:10 12/31/22 16:00 12/31/22 16:00 12/31/22 15:50 12/31/22 15:40 12/31/22 16:44 12/31/22 15:30 12/31/22 15:30 12/31/22 15:20 12/31/22 15:10 12/31/22 15:00 12/31/22 15:00 12/31/22 14:50 12/31/22 14:44 12/31/22 14:46 12/31/22 14:28 12/31/22 14:08 Room Air Cardiovascular RRR, no murmur, no edema no JVD no edema Respiratory normal respiratory effort, lungs clear to auscultation Pre-Sedation Airway Assessment Smoking Status: Never smoker Notes The planned sedation has been discussed with the patient. Informed Consent was obtained. I have identified the patient, determined the appropriateness of sedation and have assessed the patient immediately prior to the procedure. All medicine(s) and interventions are by my order.
[2023-01-01] MEDS ORDERED: FAMOTIDINE 20MG/5ML IV PUSH IV ONE (14:01)
[2023-01-01] MEDS ORDERED: methylPREDNISolone 125 MG/2 ML VIAL ONE (14:01)
--- NOTE | 2023-01-01 14:10 | Electrocardiogram Report ---
Test Reason : Blood Pressure : / mmHG Vent. Rate : 069 BPM Atrial Rate : 069 BPM P-R Int : 176 ms QRS Dur : 130 ms QT Int : 430 ms P-R-T Axes : 048 026 076 degrees QTc Int : 460 ms Normal sinus rhythm Left bundle branch block Abnormal ECG When compared with ECG of 31-DEC-2022 12:30, Premature ventricular complexes are no longer Present T wave inversion less evident in Lateral leads Confirmed by Balaji Goodson ([id number]) on 01/01/2023 2:09:28 PM Referred By: Stefania Gupta Confirmed By:Valentino Goodson
--- NOTE | 2023-01-01 14:56 | Post Anesthesia Assessment ---
Date of Service January 01, 2023 Post Sedation Assessment Vital Signs Temp Pulse Pulse Resp BP BP Pulse Ox 01/01/23 12:13 37.1 C 71 18 110/77 97 01/01/23 08:50 36.6 C 70 18 139/78 96 01/01/23 08:37 79 01/01/23 03:03 36.7 C 74 18 140/78 97 12/31/22 20:04 78 167/112 H 12/31/22 21:15 77 138/76 12/31/22 22:00 75 12/31/22 22:44 36.7 C 70 18 145/74 H 95 12/31/22 18:09 72 12/31/22 17:51 37 C 80 18 168/101 H 99 12/31/22 17:23 12/31/22 17:20 84 12 97 12/31/22 17:18 80 14 99 12/31/22 17:18 145/99 H 12/31/22 17:10 88 16 98 12/31/22 17:01 154 H 27 H 100 12/31/22 17:01 181/129 H 12/31/22 17:00 130 H 24 98 12/31/22 16:50 82 26 H 99 12/31/22 16:40 146 H 24 100 12/31/22 16:30 152 H 26 H 100 12/31/22 16:30 148/107 H 12/31/22 16:20 151 H 25 H 99 12/31/22 16:10 87 18 145/99 H 100 12/31/22 16:00 81 20 99 12/31/22 16:00 176/113 H 12/31/22 15:50 21 100 12/31/22 15:40 82 13 96 12/31/22 16:44 64 12/31/22 15:30 76 19 100 12/31/22 15:30 168/113 H 12/31/22 15:20 84 18 99 12/31/22 15:10 87 24 98 12/31/22 15:00 82 23 97 12/31/22 15:00 178/107 H O2 Del Method 01/01/23 12:13 Room Air 01/01/23 08:50 Room Air 01/01/23 08:37 01/01/23 03:03 Room Air 12/31/22 20:04 12/31/22 21:15 03/22/23 22:00 12/31/22 22:44 Room Air 12/31/22 18:09 12/31/22 17:51 Room Air 12/31/22 17:23 Room Air 12/31/22 17:20 12/31/22 17:18 12/31/22 17:18 12/31/22 17:10 12/31/22 17:01 12/31/22 17:01 12/31/22 17:00 12/31/22 16:50 12/31/22 16:40 12/31/22 16:30 12/31/22 16:30 12/31/22 16:20 12/31/22 16:10 12/31/22 16:00 12/31/22 16:00 12/31/22 15:50 12/31/22 15:40 12/31/22 16:44 12/31/22 15:30 12/31/22 15:30 12/31/22 15:20 12/31/22 15:10 12/31/22 15:00 12/31/22 15:00 Recovery Score Activity: Moves 4 extremities Respiration: Deep Breath/Cough Circulation: +/-20% PreAnes Value Consciousness: Fully Awake Oxygen Saturation: > 92% On Room Air Discharge Sedation Level of Care: Phase I Post Sedation Plan On clinical assessment, the patient appears to have tolerated the sedation without complications. Patient is recovering as anticipated. Patient will continue to be monitored by nursing and may be discharged when sedation discharge criteria are met per below protocol. Upon Completions of procedure up to 15 minutes continue every 5 minute vital signs and the P.A.R. score; then discharge to a Phase I or Fast Track to Phase II per the following guidelines: * Discharge Patient to appropriate Phase II area if PAR is 8 or greater or return to pre- procedure baseline. The post - procedure orders will be as directed. * If PAR score is less than 8 or not return to pre-procedure baseline then patient will follow Phase I monitoring till PAR is reached for Phase II. The Phase I may be done in procedure room or may call to secure a Phase I area. * If naloxone or flumazenil are used for reversal, hold in Phase I for continued monitoring from when last reversal dose was given for a minimum of 60 minutes or longer pending the nurse and/or physician discretion of patient condition before discharge to Phase II. Please call the Sedation Physician to re-evaluate and complete post-note for discharge to Phase II area. Do NOT discharge from procedure sedation or Phase 1 until post- sedation evaluation note is complete by procedure /sedation MD Sedation Discharge Instructions to be given to the patient at discharge to home.
--- NOTE | 2023-01-01 15:00 | Cardiac Catheterization ---
Cardiac Cath Procedure Brief Procedure Date January 01, 2023 Pre-Procedure Diagnosis Pre-Procedure Diagnosis: Cardiothoracic Symptom (Chest pain, left bundle branch block) AUC Score AUC Score: 8 Post-Procedure Diagnosis Post-Procedure Diagnosis: Normal Coronary Arteries and Normal Intracardiac Pressures Procedure(s) Performed Procedure(s) Performed: Coronary Angiography and Left Heart Cath [employer] Miko Magana MD Estimated Blood Loss Estimated Blood Loss: <15cc Medication(s) Medication(s): Fentanyl (12.5 mcg IV), Heparin (5000 units IV), Lidocaine 1% (Local infiltration access site), Nicardipine (250 mcg intra-arterial after arterial sheath insertion) and Versed (1 mg IV) Recommendations Recommendations: Medical Therapy and/or Counseling Specimens Specimens: None Fluids (cc crystalloids) Fluids (cc crystalloids): 135 Anesthesia Start time 1418 stop time 1449 Procedural Complication(s) None Disposition Drop Press Hand Holding/Recovery
--- NOTE | 2023-01-01 15:08 | Cardiac Catheterization ---
Cardiac Cath Procedure Full Procedure Date January 01, 2023 Pre-Procedure Diagnosis Pre-Procedure Diagnosis: Cardiothoracic Symptom (Chest pain, left bundle branch block) AUC Score AUC Score: 8 Post-Procedure Diagnosis Post-Procedure Diagnosis: Normal Coronary Arteries and Normal Intracardiac Pressures Procedure(s) Performed Procedure(s) Performed: Coronary Angiography and Left Heart Cath Pump Erector Miko Magana MD Estimated Blood Loss Estimated Blood Loss: <15cc Medication(s) Medication(s): Fentanyl (12.5 mcg IV), Heparin (5000 units IV), Lidocaine 1% (Local infiltration access site), Nicardipine (250 mcg intra-arterial after arterial sheath insertion) and Versed (1 mg IV) Summary of Findings Impression: Normal right dominant coronary anatomy Normal intracardiac pressures Procedure: Left heart catheterization, coronary angiography via right radial approach Catheters: 6 [place] long radial sheath, 5 [place], 5 [place] JL 3.5, 5 [place] JL 4, 5 [place] Contrast: Nonionic Procedural note: Patient with contrast allergy received oral prednisone 60 mg 4 hours prior to the procedure, 125 mg IV Solu-Medrol, 50 mg IV Benadryl without reaction Results: Coronary angiography: Right dominant anatomy Left main: Normal length and caliber without obstruction or calcification Left anterior descending: Type III vessel. It gives rise to a large bifurcating diagonal branch shortly after its origin and courses to terminate at the apex. Vessel is tortuous without disease Left circumflex: Moderate caliber nondominant. Gives rise to a high marginal branch and a moderate-sized obtuse marginal branch before continuing along the AV groove as a thin posterolateral branch. There is no disease in the left circumflex Right coronary artery: Very large caliber vessel. It gives rise to a sinoatrial branch and a conus branch at its origin right ventricular branch in its midportion, a small posterior descending artery and 2 posterior ventricular branches. There is no disease in the right coronary artery Hemodynamics Rest Ao:: 120/59/92 Final Ao: 141/89/112 LV: 118/0/1 Recommendations Recommendations: Medical Therapy and/or Counseling Specimens Specimens: None Radiation Exposure (mGy) 867 Contrast (mls) 60 Fluids (cc crystalloids) Fluids (cc crystalloids): 135 Anesthesia Start time 1418 stop time 1449 Procedural Complication(s) None Disposition [employer] Worker Holding/Recovery I attest to the content of the Intraoperative Record and any orders documented therein. Any exceptions are noted below. ACC Data: [place] [employer] Worker Cardiac Status Clinical evaluation leading to the procedure 47-year-old female with cardiovascular risk factors of hypertension, hyperlipidemia and family history presents with 2 episodes of severe chest pain and newly observed left bundle branch block CAD Presenation: Stable angina Anginal Classification: CCS III Heart Failure: No Cardiogenic Shock within 24 Hours: No Imaging Studies Past 6 Months: Yes Stress Studies Past 6 Months: No Standard Exercise Test: No Stress Echocardiogram: No Stress Testing w/SPECT MPI: No Cardiac CTA: No Coronary Anatomy Dominant: Right Left Main (% Stenosis): Normal LAD (% Stenosis): Normal D1 (% Stenosis): Normal Circumflex (% Stenosis): Normal OM1 (% Stenosis): Normal OM2 (% Stenosis): Normal RCA (% Stenosis): Normal R PDA (% Stenosis): Normal R PL1 (% Stenosis): Normal Left Ventricular Angiography EF (%): N/A Diagnostic Physicians Name: Miko Magana MD Status: Urgent Closure Device Percutaneous Entry Location: Radial Closure Device: Radial Band Recommendations: Medical Therapy and/or Counseling
--- NOTE | 2023-01-01 16:14 | Hospitalist Progress Note ---
Date of Service January 01, 2023 Assessment & Plan (1) Chest pain: (2) LBBB (left bundle branch block): Plan: per admitting C notes with addendum: Patient is 47-year-old female with PMH HLD, obesity presented to ER with complaint of intermittent chest pain In ER afebrile, P: 83, BP: 171/83, R: 20, 98% on RA. Initial high-sensitivity troponin: 3.1. EKG reviewed and sinus rhythm rate 75 with PVCs, LBBB. No prior EKG to compare CXR: No acute cardiopulmonary findings Has been without chest pain during ER course Unsure if new or old LBBB R/O ACS. Risk factors: HLD, obesity, FH Repeat EKG in am Will trend troponin Echo Lipid panel in am NPO midnight Start aspirin Nitro prn CP and repeat EKG for CP Cardiology consult 01/01 ACS ruled out EKG unchanged this morning for Cardiac cath today (3) Elevated blood pressure reading: Plan: BP's elevated in ER today. BP in PCP office today was WNL Monitor BP Cardiology suggest losartan one dose 01/01 Losartan 25mg po daily started monitor BP (4) HLD (hyperlipidemia): Plan: 05/01/2021 lipid panel: Total cholesterol: 244, LDL: 182, HDL: 53, triglycerides: 47 Not on current medication 01/01 TG 59 LDL 155 HDL 42 (5) Lab test positive for detection of COVID-19 virus: Plan: Positive SARS Cov 2 RNA test in ER Reported slight cough this morning. Denies fever/chills, N/V, SOB. No hypoxia CXR: No acute cardiopulmonary findings Isolation precautions 01/01 has mild cough no dyspnea CXR: no pneumonia on room air supportive care (6) Obesity: Plan: BMI: 39 Lifestyle modifications recommended DVT Prophylaxis SCDs Full Code as per discussion with pt Disposition pending anticipate d/c home when medically stable Admission and Anticipated Discharge Date Admission Date: December 31, 2022 Subjective ff up for chest pain, etc seen resting in bed, comfortable Results & Data Results & Data Vital Signs (Past 12 Hours) Vital Signs Temp Pulse Pulse Resp BP Pulse Ox O2 Del Method 01/01/23 15:58 36.9 C 75 18 103/75 98 Room Air 01/01/23 15:41 36.9 C 74 17 129/85 98 Room Air 01/01/23 15:32 36.8 C 74 17 124/82 95 Room Air 01/01/23 15:11 37.0 C 70 18 124/82 94 Room Air 01/01/23 12:13 37.1 C 71 18 110/77 97 Room Air 01/01/23 08:50 36.6 C 70 18 139/78 96 Room Air 01/01/23 08:37 79
--- NOTE | 2023-01-01 16:40 | Discharge Summary ---
Discharge Summary Date of Service January 01, 2023 Notes For Next Care Provider Please monitor blood pressure. Please facilitate cardiology clinic follow-up with Dr. Miko Magana. Medication Changes From Visit None Admission HPI Per Admitting Provider Patient is 47-year-old female with PMH HLD, obesity presented to ER with complaint of intermittent chest pain. Patient presented to outpatient primary care clinic today for episodes of chest pain. She was referred to ER and had reported abnormal EKG. This is unavailable for review from outpatient records. Reports episode of chest pain in September 2022 that awoke her from sleep resolved in 1-2 hours and self resolved. Reports 5 days ago awoke from sleep with chest pain radiating to back described as pressure, worsened with deep breathing with associated dizziness. Denies SOB. She states made her self vomit and it felt like it relieved the pressure a little. Resolved in 3 hours. Took 2 Benadryl and aspirin. States 4 days ago also with chest pain when she was talking about her son's upcoming wedding and felt stressed. She was concerned it may be related to stress or anxiety. Feels has some underlying anxiety. Taking OTC herbal supplements. Patient reports some headache today while being in ER. Denies any chest pain today or currently. States this morning coughed a few times. Denies productive cough or SOB. Denies known ill contacts. Denies fever/chills, diaphoresis, N/V/D/C, dizziness, syncope, vision changes, neck pain, SOB, orthopnea, palpitations, sore throat, choking, otalgia, rhinorrhea, abdominal pain, paresthesias, weakness, extremity weakness, extremity edema, rashes, urinary symptoms. Admission Exam Per Admitting Provider General: no acute distress, obese Head: normocephalic, atraumatic Eyes: conjunctiva non-injected, anicteric ENT: normal inspection external ears, nose, mucous membranes moist Neck: supple, trachea midline Lungs: clear, no respiratory distress, no wheezing/rhonchi/rales CV: RRR, no murmur, no pretibial edema Abd: normal BS, soft, non-tender Ext: no cyanosis, no calf tenderness Neuro: A&O x 3, no focal deficits noted, normal affect Skin: warm, dry Principal Dx & Hospital Course #1 = Principal Diagnosis (1) Chest pain: 1) Chest pain: (2) LBBB (left bundle branch block): Plan: per admitting S[facility] notes with addendum: Patient is 47-year-old female with PMH HLD, obesity presented to ER with complaint of intermittent chest pain In ER afebrile, P: 83, BP: 171/83, R: 20, 98% on RA. Initial high-sensitivity troponin: 3.1. EKG reviewed and sinus rhythm rate 75 with PVCs, LBBB. No prior EKG to compare CXR: No acute cardiopulmonary findings Has been without chest pain during ER course Unsure if new or old LBBB R/O ACS. Risk factors: HLD, obesity, FH 01/01 ACS ruled out EKG unchanged this morning Echocardiogram: Borderline concentric LVH, septal motion is consistent with conduction abnormality, no regional wall motion abnormalities, ejection fraction 60 to 65%, no valvular disease Status post cardiac cath today:Normal Coronary Arteries and Normal Intracardiac Pressures Cleared for discharge by cardiology service Follow-up with Dr. 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 BP in PCP office today was WNL Given 1 dose of losartan on December 31 As of January 01, patient's blood pressure has been stable without any blood pressure medication Follow-up with PCP in 1 week (4) HLD (hyperlipidemia): Plan: 05/01/2021 lipid panel: Total cholesterol: 244, LDL: 182, HDL: 53, triglycerides: 47 Not on current medication 01/01 TG 59 LDL 155 HDL 42 (5) Lab test positive for detection of COVID-19 virus: Plan: Positive SARS Cov 2 RNA test in ER Reported slight cough this morning. Denies fever/chills, N/V, SOB. No hypoxia CXR: No acute cardiopulmonary findings Isolation precautions 01/01 has mild cough no dyspnea CXR: no pneumonia on room air supportive care Isolate for 8 more days (6) Obesity: Plan: BMI: 39 Lifestyle modifications recommended DVT Prophylaxis SCDs Full Code as per discussion with pt Disposition DC home today Follow-up with PCP in 1 week plan of care discussed with patient in detail and at length all questions answered she is understanding, agreeable, comfortable with the plan of care Discharge Exam General- oriented x 3, not in distress, speaks in sentences with no effort or accessory muscle use Eyes- anicteric Neck- no JVD Lungs- clear BS bilaterally, no rales/wheezes Heart- normal rate, regular rhythm; no murmurs Abdomen- normal bowel sounds, nondistended, soft, nontender Extremities- no pretibial edema, no calf tenderness Neuro- alert, oriented x 3; no gross focal neurologic deficits Skin- warm & dry Updated Medication List Medication Instructions Recorded Confirmed Type loratadine 10 mg tablet 10 mg PO DAILY 12/31/22 12/31/22 History Hospital Stay Data Consultations 12/31/22 15:30 ED Decision to Admit Stat 12/31/22 17:47 Consult Cardiology Routine Procedures Performed Operation Date: 01/01/23 14:00 Actual Procedures p Cineradiography w/Routine Exam - Miko Magana MD Diagnostic Imagining Performed 12/31/22 20:07 CT head/brain wo con Stat IMPRESSION: Normal CT brain for age. 01/01/23 13:39 CL Cath Imgs for PACS use only Routine Pending Results Patient Have Any Pending Studies at Discharge: No Discharge Instructions Given to Patient (Per Discharging Provider) Please continue your usual medication regimen. Drink plenty of water. You still need to isolate for 8 more days in light of COVID infection. No energy drinks/alcohol/smoking. PLEASE CALL YOUR PRIMARY CARE PHYSICIAN OR RETURN TO THE ER IF WITH WORSENING OF SYMPTOMS, INCLUDING Chest pain, shortness of breath, leg pain/swelling, palpitations, dizziness, nausea or vomiting, fevers or chills, etc. FOLLOW UP WITH PRIMARY CARE PHYSICIAN IN 1 WEEK. FOLLOW-UP WITH [facility] EXPLOSIVE [employer] DISPOSAL MANAGER WELL. THE [facility] OFFICE WILL BE CALLING YOU FOR AN APPOINTMENT SOON. Total Time Total Time Spent Total Time Spent (In Minutes): >30 minutes
--- NOTE | 2023-01-01 17:24 | Communication Note ---
Date of Service: January 01, 2023 Patient seen postcardiac catheterization. Underwent study uneventfully but did receive steroid prep preoperatively given history of contrast allergy Study did not demonstrate any coronary disease with essentially normal anatomy other than mild vessel tortuosity. LV end-diastolic pressure was normal Impression: Left bundle branch block without associated cardiac dysfunction or coronary obstruction Atypical chest pain nonischemic. Recommendations: Patient stable to discharge after observation. Post cath with post radial cath instructions Patient to reduce caffeine intake, follow-up cardiology 1 month Both episodes of pain have been nocturnal consider sleep test
[2023-01-01 19:46] VITALS: BP 137/89; PULSE 77; TEMP 97.7; O2SAT 95
== END 2023-01-01 20:10 | disposition home or self-care (01) ==
LOC: 2N 11:25 → ED 11:25 → SUATTDRO 15:38 → 2N 17:23 → 2S 01-01 15:03